=== PATIENT | male | born 1960 ===

== ENCOUNTER → 2020-12-15 12:33 | Outpatient (CLI) | payer OTHER, SELFPAY ==
[2020-12-15 13:18] LABS: COVID19 -Nasal RAPID Negative (Negative)
== END ==
PROVIDERS: Visit Provider Nurse Practitioner
DX: J02.9 Acute pharyngitis, unspecified (principal)
CPT/HCPCS: 87070; 87635

== ENCOUNTER → 2020-12-15 13:22 | Outpatient (CLI) | payer OTHER, SELFPAY ==
[2020-12-15 13:41] LABS: Add Manual Diff / Slide Review NO; Basophils Absolute Auto 100 /uL (0-100); Basophils Percent Auto 0.8 % (0-2); Eosinophils Absolute Auto 100 /uL (0-450); Eosinophils Percent Auto 1.5 % (2-4); Hematocrit 44.8 % (41-53); Hemoglobin 14.8 g/dL (13.5-17.5); Lymphocytes Absolute Auto 1900 /uL (1100-4500); Lymphocytes Percent Auto 27.5 % (25-40); Mean Corpuscular Volume 87.9 fL (80-100); Monocytes Absolute Auto 800 /uL (0-900); Monocytes Percent Auto 12.2 % (3-14); Neutrophils Absolute Auto 4000 /uL (1500-7000); Platelet Count 241 X10^3/uL (150-400); Red Cell Distribution Width 13.1 % (11.6-14.8)
[2020-12-15 13:46] LABS: Monotest Positive (Negative)
== END ==
PROVIDERS: Referring Provider Nurse Practitioner; Visit Provider Nurse Practitioner
DX: R59.9 Enlarged lymph nodes, unspecified (principal); J02.9 Acute pharyngitis, unspecified
CPT/HCPCS: 36415; 85025; 86318; 87070; 87635